=== PATIENT | female | born 1950 | race Caucasian/White ===

== ENCOUNTER → 2019-10-26 | Outpatient (REF) | LOC: M LAB LCGH 10:20 | PROVIDERS: ATTEND Physician Assistant | DX: D48.5 Neoplasm of uncertain behavior of skin (principal) ==

== ENCOUNTER → 2021-09-04 | Outpatient (CLI) | payer MEDICARE, BC ==
[~2021-09-04] MED LIST: ATOR1TAB21 PO; CELE1CAP4 PO; CELE1CAP9 PO; CYCL-707 PO; IRBE300T12 PO; KP F1200 PO; MECL-86 PO; PANT40TA29 PO; SUPE600T4 PO; TAMO20TA8 PO; VITA500075 PO; VITAE40CA PO; ZOLO100T PO
== END ==
LOC: M LABSMTC 11:17
PROVIDERS: ATTEND Anesthesiology
DX: Z01.812 Encounter for preprocedural laboratory examination (principal); Z11.52 Encounter for screening for COVID-19

== ENCOUNTER 2021-09-09 11:56 | Day surgery (SDC) | payer MEDICARE, BC ==
[~2021-09-09] VITALS: Ht 157.5 cm; Wt 104.0 kg
[~2021-09-09 11:56] MED LIST changes: +LR 1,000 ML IV ONE
[2021-09-09] MEDS ORDERED: propofoL 200 MG/20 ML VIAL As Ordered ONE ×2 (12:57→12:59)
[2021-09-09] MEDS ORDERED: ROCURONIUM BROMIDE 50 MG/5 ML VIAL As Ordered ONE (12:57)
[2021-09-09] MEDS ORDERED: LIDOCAINE 2% 100MG/5ML SDV (FOR ANES.) As Ordered ONE (12:57)
[2021-09-09] MEDS ORDERED: fentaNYL 100 MCG/2 ML INJECTION As Ordered ONE ×2 (12:58→14:23)
[2021-09-09] MEDS ORDERED: MIDAZOLAM INJ 2MG/2ML VIAL (J2250 PER 1MG) As Ordered ONE (12:58)
[2021-09-09] MEDS ORDERED: LIDOCAINE W/EPINEPHRINE 1% 20ML VIAL As Ordered ONE (13:42)
[2021-09-09 13:43] LABS: HEMATOCRIT 41.9 % (36.0-47.0); HEMOGLOBIN 13.3 g/dl (12.0-15.5); MEAN CORPUSCULAR HEMOGLOBIN 28.7 pg (27.0-33.0); MEAN CORPUSCULAR HGB CONC 31.7 g/dl (32.0-36.5); MEAN CORPUSCULAR VOLUME 90.5 fl (80.0-96.0); PLATELET COUNT, AUTOMATED 177 10^3/uL (150-450); RED BLOOD COUNT 4.63 10^6/uL (4.00-5.40); WHITE BLOOD COUNT 11.7 10^3/uL (4.0-10.0)
[2021-09-09] MEDS ORDERED: COCAINE 4% 4ML NASAL SOLUTION BTL As Ordered ONE (13:43)
[2021-09-09] MEDS ORDERED: OXYMETAZOLINE 0.05% NASAL SPRAY (AFRIN) As Ordered ONE (13:43)
[2021-09-09] MEDS ORDERED: ONDANSETRON 4MG/2ML VIAL As Ordered ONE (14:10)
[2021-09-09] MEDS ORDERED: dexameTHASONE 4 MG/ML 1ML VIAL (J1100 PER 1MG) As Ordered ONE (14:10)
[2021-09-09] MEDS ORDERED: PHENYLephrine 500MCG 5ML (100MCG/ML) SYRINGE As Ordered ONE (14:18)
[2021-09-09] MEDS ORDERED: ACETAMINOPHEN 1000MG 100ML IV BTL (OFIRMEV) (J0131 PER 10MG) As Ordered ONE (14:23)
[2021-09-09] MEDS ORDERED: ePHEDrine SULFATE 25 MG/5 ML(5MG/ML) SYRINGE As Ordered ONE (14:33)
[2021-09-09] MEDS ORDERED: LR 1,000 ML IV SCH ×2 (15:25→15:30)
[2021-09-09] MEDS ORDERED: ONDANSETRON 4MG/2ML VIAL IV PRN ×2 (15:25→15:30)
[2021-09-09] MEDS ORDERED: fentaNYL 100 MCG/2 ML INJECTION IV PRN (15:25)
[2021-09-09] MEDS ORDERED: oxyCODONE 5MG TAB PO PRN (15:25)
[2021-09-09] MEDS ORDERED: MORPHINE 10 MG/ML 1ML VIAL (J2270) IV PRN (15:30)
[2021-09-09] MEDS ORDERED: ANEXSIA, NORCO 7.5MG/325MG TABLET(HYDROCODONE/APAP) PO PRN (15:30)
[2021-09-09 15:53] VITALS: BP 145/65
== END 2021-09-09 16:19 | disposition home or self-care (01) ==
LOC: M SDC 11:56
PROVIDERS: ATTEND Otolaryngology
DX: J34.2 Deviated nasal septum (principal); J34.3 Hypertrophy of nasal turbinates; I10 Essential (primary) hypertension; E78.5 Hyperlipidemia, unspecified; K21.9 Gastro-esophageal reflux disease without esophagitis; F41.9 Anxiety disorder, unspecified; J44.9 Chronic obstructive pulmonary disease, unspecified; Z85.3 Personal history of malignant neoplasm of breast; Z92.21 Personal history of antineoplastic chemotherapy; Z92.3 Personal history of irradiation; G47.33 Obstructive sleep apnea (adult) (pediatric); Z79.899 Other long term (current) drug therapy
CPT/HCPCS: 30140; 30520; 36415; 85027; C9046; J0131; J1100; J2250; J2370; J2405; J3010